=== PATIENT | female | born 1970 | race Caucasian/White ===

== ENCOUNTER 2016-09-27 22:57 | Emergency (ER) | payer MEDICARE, OTHER | END 2016-09-28 02:28 | disposition home or self-care (01) | LOC: FER 22:57 | DX: M79.601 Pain in right arm (principal); Z86.14 Personal history of Methicillin resistant Staphylococcus aureus infection; Z88.5 Allergy status to narcotic agent; Z88.6 Allergy status to analgesic agent; Z96.652 Presence of left artificial knee joint; Z97.8 Presence of other specified devices | CPT/HCPCS: 36415; 71010; 85379; 93971; J1885 ==